=== PATIENT | female | born 1955 | race Caucasian/White ===

== ENCOUNTER 2022-10-16 19:23 | Emergency (ER) | payer OTHER, MEDICARE ==
[2022-10-16 19:49] VITALS: BP 192/79; PULSE 114; RESP 20; TEMP 98.2; BMI 23.0
[2022-10-16] MEDS ORDERED: LIDOCAINE HCL 1%, 10 MG/ML (20ML VIAL) ONE (20:35)
[2022-10-16] MEDS ORDERED: DIPHTH,PERTUSS(ACELL),TET 0.5 ML DISP.SYRIN IM ONE ×2 (20:44→20:48)
== END 2022-10-16 20:56 | disposition home or self-care (01) ==
LOC: JERFT 19:23
PROC: 0HQGXZZ Repair Left Hand Skin, External Approach (ICD-10-PCS; principal; 2022-10-16)
PROC: 3E0234Z Introduction of Serum, Toxoid and Vaccine into Muscle, Percutaneous Approach (ICD-10-PCS; 2022-10-16)
DX: S61.412A Laceration without foreign body of left hand, initial encounter (principal); W26.8XXA Contact with other sharp object(s), not elsewhere classified, initial encounter
CPT/HCPCS: 12001-25; 90471; 90715; 99284-25